=== PATIENT | female | born 1955 | race Hispanic/Latino ===

== ENCOUNTER 2018-09-30 08:59 | Outpatient (CLI) | payer MEDICARE ==
--- NOTE | 2018-09-30 11:16 | MMO ---
Bilateral MAMMO Bilat Screen [facility]DI. CLINICAL HISTORY: Patient is 62 years old and is seen for screening. The patient has no family history of breast cancer. The patient has no personal history of cancer. VIEWS: The views performed were: bilateral craniocaudal and bilateral mediolateral oblique. This study has been interpreted with the assistance of computer-aided detection. MAMMOGRAM FINDINGS: The breasts are extremely dense, which may lower the sensitivity of mammography. There are benign appearing calcifications seen in both breasts. There are no suspicious masses, suspicious calcifications, or new areas of architectural distortion. IMPRESSION: THERE IS NO MAMMOGRAPHIC EVIDENCE OF MALIGNANCY. A ROUTINE FOLLOW-UP MAMMOGRAM IN 1 YEAR IS RECOMMENDED. ACR BI-RADS Category 2 - Benign finding MAMMOGRAPHY NOTE: 1. A negative mammogram report should not delay a biopsy if a dominant of clinically suspicious mass is present. 2. Approximately 10% to 15% of breast cancers are not detected by mammography. 3. Adenosis and dense breasts may obscure an underlying neoplasm. Reported by: ALEX SEPULVEDA MD Electonically Signed: [id number]
== END 2018-09-30 09:00 | disposition home or self-care (01) ==
LOC: SCSMAMMO 08:59
PROVIDERS: ATTEND Nurse Practitioner Family
DX: Z12.31 Encounter for screening mammogram for malignant neoplasm of breast (principal)
CPT/HCPCS: 77067

== ENCOUNTER 2019-05-16 12:51 | Outpatient (CLI) | payer MEDICARE ==
--- NOTE | 2019-05-16 13:23 | ULT ---
THYROID ULTRASOUND INDICATION: Multinodular goiter and elevated TSH TECHNIQUE: Grayscale and color Doppler images were obtained of the thyroid gland. COMPARISON: None FINDINGS: Right thyroid lobe: The right thyroid lobe measures 2.0 x 4.7 x 2.3 cm. There is a hyperechoic 1.6 cm , well-circumscribed, solid nodule within the mid right thyroid gland. There is an 8 mm solid hypoechoic nodule involving the superior pole of the right thyroid lobe. Thyroid isthmus: The thyroid isthmus measures 0.54 cm. Left thyroid lobe: The left thyroid lobe measures 1.3 x 3.9 x 1.7 cm. There is a 7 mm solid hypoechoi c nodule involving the superior pole of the left lower lobe. There is an 8 mm solid, centrally hyperechoic nodule involving inferior pole of the left thyroid lobe. Smaller 7 mm hypoechoic nodule i s seen within the medial aspect of the left upper thyroid lobe. IMPRESSION: 1. Findings of multinodular goiter. 2. TIRADS 3 lesion of the mid right thyroid lobe. This lesion is greater than 1.5 cm. Recommend a fol low-up ultrasound in one year, 3 years and 5 years from this date of exam.
== END 2019-05-16 12:52 | disposition home or self-care (01) ==
LOC: BICULT 12:51
PROVIDERS: ATTEND Family Medicine
DX: R13.10 Dysphagia, unspecified (principal); R94.6 Abnormal results of thyroid function studies; E04.0 Nontoxic diffuse goiter; E07.89 Other specified disorders of thyroid; E04.2 Nontoxic multinodular goiter
CPT/HCPCS: 76536

== ENCOUNTER 2019-06-03 15:42 | Emergency (ER) | payer MEDICARE ==
[~2019-06-03 15:42] MED LIST: Iopamidol 370 76% 100 ML VIAL ONE
[2019-06-03] MEDS ORDERED: Ondansetron PF 4 MG/2 ML Vial ONE (16:06)
[2019-06-03 16:29] LABS: #Eosinphils 0.1 thou/uL (0.0-0.7); #Lymphocytes 3.3 thou/uL (1.20-3.40); #Monocytes 0.5 thou/uL (0.11-0.59); #Neutrophils 6.2 thou/uL (1.40-6.50); %Basophils 0.1 % (0.0-1.0); %Eosinophils 1.2 % (0.0-10.0); %Lymphocytes 32.1 % (21.0-51.0); %Monocytes 5.2 % (0.0-10.0); %Neutrophils 61.4 % (42.0-75.0); Hemoglobin 12.2 g/dL (12.0-16.0); Mean Corpuscular HGB CONC 36.6 g/dL (32.0-36.0); Mean Corpuscular Hemoglobin 34.7 pg (27.0-31.0); Mean Corpuscular Volume 94.6 fL (78.0-98.0); Mean Platelet Volume 7.8 fL (7.4-10.4); Platelet Count 364 thou/uL (130-400); RBC Distribution Width 11.8 % (11.5-14.5); Red Blood Cell (RBC) Count 3.52 mill/uL (4.20-5.40); White Blood Cell (WBC) Count 10.1 thou/uL (4.8-10.8)
[2019-06-03 16:33] LABS: PTT 25.7 SEC (22.9-36.1); Prothrombin Time 12.8 SEC (12.0-14.7)
[2019-06-03 16:45] LABS: ALT (SGPT) 22 U/L (8-55); AST (SGOT) 39 U/L (5-34); Albumin 4.5 g/dL (3.4-4.8); Alkaline Phosphatase 125 U/L (40-110); Anion Gap 17 mmol/L (10-20); BUN (Urea Nitrogen) 12 mg/dL (9.8-20.1); Bilirubin, Total 0.2 mg/dL (0.2-1.2); Calc. Creatinine Clearance 0 mL/min (70-130); Calcium 9.3 mg/dL (7.8-10.44); Carbon Dioxide 23 mmol/L (23-31); Chloride 104 mmol/L (98-107); Estimated GFR-MDRD 80; Globulin 4.4 g/dL (2.4-3.5); Glucose 144 mg/dL (80-115); Potassium 4.4 mmol/L (3.5-5.1); Protein, Total 8.9 g/dL (6.0-8.3); Sodium 140 mmol/L (136-145)
--- NOTE | 2019-06-03 18:35 | CT ---
CT of the abdomen and pelvis: 06/03/2019 COMPARISON: None HISTORY: Abdominal pain, GI bleeding TECHNIQUE: Axial CT imaging obtained at 5 mm intervals from the lung bases through the pubic symphysi s with IV and oral contrast. Coronal and sagittal reformatted imaging obtained. FINDINGS: The imaged lung bases are unremarkable. No free intraperitoneal air or fluid is seen. The hepatic parenchyma is diffusely hypodense, evidence of steatosis. The spleen, pancreas, and adrenal glands are unremarkable. The gallbladder is nonvisualized suggestin g prior cholecystectomy. No acute renal abnormality is noted on either side. No evidence for bowel obstruction or bowel inflammatory change. The appendix appears grossly unremark able. The vascular structures of the abdomen/pelvis appear patent. Multiple areas of soft tissue nodularity are noted within the subcutaneous fat of bilateral buttock regions suggesting the sequela of prior injections. Clinical correlation is required. There is a hypodense lesion associated with the posterior aspect of the uterus superiorly on the left measuring 2.8 cm, likely on the basis of a uterine fibroid. No abdominal or pelvic lymphadenopathy is apparent. Review of the osseous structures demonstrates degenerative change involving bilateral sacroiliac join ts. There is a are scattered areas of degenerative change involving the imaged spine, most prominent at the L5-S1 level where there is vacuum disc formation as well as bilateral facet hypertro phy with associated significant bilateral neural foraminal stenosis. IMPRESSION: Numerous incidental findings as detailed above. No acute findings are evident.
== END 2019-06-03 19:10 | disposition home or self-care (01) ==
LOC: ERS 15:42
DX: K92.1 Melena (principal); R11.2 Nausea with vomiting, unspecified; E11.9 Type 2 diabetes mellitus without complications; I10 Essential (primary) hypertension; E78.5 Hyperlipidemia, unspecified; F41.9 Anxiety disorder, unspecified; F31.9 Bipolar disorder, unspecified; F20.9 Schizophrenia, unspecified; Z79.899 Other long term (current) drug therapy; Z79.84 Long term (current) use of oral hypoglycemic drugs
CPT/HCPCS: 74177; 80053; 82274; 83630; 85025; 85610; 85730; 87045; 87046; 87324; 87427; 87449; 96361; 96374; J2405; Q9967

== ENCOUNTER 2020-12-05 14:59 | Observation (INO) | payer MEDICARE ==
[~2020-12-05 14:59] MED LIST changes: -Iopamidol 370 76% 100 ML VIAL ONE; +Iopamidol-370 76% 500 ML 1 ML ONE
[2020-12-05 15:53] LABS: #Basophils 0.1 thou/uL (0.0-0.2); #Eosinphils 0.2 thou/uL (0.0-0.7); #Lymphocytes 5.1 thou/uL (1.20-3.40); #Monocytes 0.8 thou/uL (0.11-0.59); #Neutrophils 8.1 thou/uL (1.40-6.50); %Basophils 0.9 % (0.0-1.0); %Eosinophils 1.2 % (0.0-10.0); %Lymphocytes 35.9 % (21.0-51.0); %Monocytes 5.3 % (0.0-10.0); %Neutrophils 56.8 % (42.0-75.0); Hemoglobin 13.8 g/dL (12.0-16.0); Mean Corpuscular HGB CONC 34.9 g/dL (32.0-36.0); Mean Corpuscular Hemoglobin 32.9 pg (27.0-31.0); Mean Corpuscular Volume 94.5 fL (78.0-98.0); Mean Platelet Volume 8.2 fL (7.4-10.4); Platelet Count 408 thou/uL (130-400); RBC Distribution Width 12.3 % (11.5-14.5); Red Blood Cell (RBC) Count 4.19 mill/uL (4.20-5.40); White Blood Cell (WBC) Count 14.3 thou/uL (4.8-10.8)
[2020-12-05 16:21] LABS: ALT (SGPT) 45 U/L (8-55); AST (SGOT) 46 U/L (5-34); Albumin 4.5 g/dL (3.4-4.8); Alkaline Phosphatase 101 U/L (40-110); Anion Gap 16 mmol/L (10-20); BUN (Urea Nitrogen) 19 mg/dL (9.8-20.1); Bilirubin, Total 0.6 mg/dL (0.2-1.2); Calc. Creatinine Clearance 0 mL/min (70-130); Calcium 9.9 mg/dL (7.8-10.44); Carbon Dioxide 32 mmol/L (23-31); Chloride 93 mmol/L (98-107); Globulin 4.2 g/dL (2.4-3.5); Glucose 202 mg/dL (80-115); Lipase 40 U/L (8-78); Magnesium 1.5 mg/dL (1.6-2.6); Potassium 3.3 mmol/L (3.5-5.1); Protein, Total 8.7 g/dL (5.8-8.1); Sodium 138 mmol/L (136-145)
[2020-12-05] MEDS ORDERED: Potassium Chloride 20 MEQ TAB ONE (17:03)
[2020-12-05] MEDS ORDERED: Promethazine HCl 25 MG/ML VIAL ONE (17:03)
[2020-12-05 17:43] LABS: Bilirubin Negative (Negative); Blood, Urine Negative (Negative); Clarity Clear (Clear); Glucose, Urine (Dipstick) Greater than 1000 mg/dL (Negative); Ketone, Urine Negative (Negative); Leukocyte Negative Leu/uL (Negative); Nitrite Negative (Negative); Protein, Urine (Dipstick) Negative (Neg-Trace); Specific Gravity, Urine 1.039 (1.002-1.036); Urobilinogen Normal mg/dL (Less than 2)
[2020-12-05] MEDS ORDERED: Piperacillin/Tazobactam 4.5 GM VIAL ONE (17:54)
[2020-12-05 18:56] LABS: HIV (1/2) Antibody/Antigen Non-Reactive (NonReactive); HIV 1/2 INDEX 0.07 S/CO (<1.00); Hep B Surf Ag Non-Reactive S/CO (NonReactive); Hep C IgG Ab Non-Reactive (NonReactive); Hep C Index 0.13 S/CO (0-0.79)
[2020-12-05 19:12] LABS: Lactic Acid 3.2 mmol/L (0.5-2.2)
[2020-12-05] MEDS ORDERED: Vancomycin 1 GM/200 ML BAG ONE (20:25)
[2020-12-05 22:50] LABS: SARS-CoV-2 NAA Rapid Test Not Detected (NotDetected)
[2020-12-05] MEDS ORDERED: Ondansetron ODT 4 MG TAB PO PRN (23:19)
[2020-12-05] MEDS ORDERED: Acetaminophen 325 MG TAB PO PRN (23:19)
[2020-12-05] MEDS ORDERED: Dextrose 5% in Water 1,000 ML IV PRN (23:28)
[2020-12-05] MEDS ORDERED: Dextrose 50% Abboject 50 ML SYRINGE SLOW IVP PRN (23:28)
[2020-12-05] MEDS ORDERED: HumaLOG 300 UNITS/3 ML VIAL SC PRN ×2 (23:28)
[2020-12-05] MEDS ORDERED: Magnesium 2 GM/50 ML 2 GM in Premix Bag 1 BAG IVPB SCH (23:59)
[2020-12-06] MEDS: Lactated Ringer's 1,000 ML IV SCH ×2 (01:21→08:28)
[2020-12-06 06:00] LABS: #Basophils 0.1 thou/uL (0.0-0.2); #Eosinphils 0.2 thou/uL (0.0-0.7); #Lymphocytes 4.2 thou/uL (1.20-3.40); #Monocytes 0.7 thou/uL (0.11-0.59); #Neutrophils 7.1 thou/uL (1.40-6.50); %Basophils 0.6 % (0.0-1.0); %Eosinophils 1.3 % (0.0-10.0); %Lymphocytes 34.5 % (21.0-51.0); %Monocytes 5.4 % (0.0-10.0); %Neutrophils 58.3 % (42.0-75.0); Hemoglobin 11.1 g/dL (12.0-16.0); Mean Corpuscular HGB CONC 34.3 g/dL (32.0-36.0); Mean Corpuscular Hemoglobin 32.7 pg (27.0-31.0); Mean Corpuscular Volume 95.3 fL (78.0-98.0); Platelet Count 309 thou/uL (130-400); RBC Distribution Width 12.2 % (11.5-14.5); Red Blood Cell (RBC) Count 3.39 mill/uL (4.20-5.40); White Blood Cell (WBC) Count 12.2 thou/uL (4.8-10.8)
[2020-12-06] MEDS ORDERED: Levothyroxine Sodium 125 MCG TAB PO SCH (06:00)
[2020-12-06 06:17] LABS: Lactic Acid 2.8 mmol/L (0.5-2.2)
[2020-12-06 06:22] LABS: ALT (SGPT) 27 U/L (8-55); AST (SGOT) 24 U/L (5-34); Albumin 3.5 g/dL (3.4-4.8); Alkaline Phosphatase 83 U/L (40-110); Anion Gap 12 mmol/L (10-20); BUN (Urea Nitrogen) 14 mg/dL (9.8-20.1); Bilirubin, Total 0.5 mg/dL (0.2-1.2); Calc. Creatinine Clearance 84 mL/min (70-130); Calcium 8.5 mg/dL (7.8-10.44); Carbon Dioxide 26 mmol/L (23-31); Chloride 103 mmol/L (98-107); Globulin 3.1 g/dL (2.4-3.5); Glucose 135 mg/dL (80-115); Potassium 3.9 mmol/L (3.5-5.1); Protein, Total 6.6 g/dL (5.8-8.1); Sodium 137 mmol/L (136-145)
[2020-12-06] MEDS ORDERED: Fenofibrate 48 MG TAB PO SCH (07:30)
[2020-12-06] MEDS ORDERED: Aspirin 81 mg Enteric Coated Tablet PO SCH (09:00)
[2020-12-06] MEDS ORDERED: Fish Oil 1,000 MG CAP PO SCH (09:00)
[2020-12-06 11:33] VITALS: BP 96/64; TEMP 97.2
[2020-12-06] MEDS ORDERED: Atorvastatin Calcium 20 MG TAB PO SCH (21:00)
== END 2020-12-06 15:00 | disposition home or self-care (01) ==
LOC: ERS 14:59 → T4-B 21:18
PROVIDERS: ADMIT Family Medicine; ATTEND Family Medicine
DX: B34.9 Viral infection, unspecified (principal); E86.0 Dehydration; E87.6 Hypokalemia; E83.42 Hypomagnesemia; N17.9 Acute kidney failure, unspecified; I95.9 Hypotension, unspecified; E87.2 Acidosis; I10 Essential (primary) hypertension; I25.2 Old myocardial infarction; E11.9 Type 2 diabetes mellitus without complications; E03.9 Hypothyroidism, unspecified; E06.3 Autoimmune thyroiditis; D47.3 Essential (hemorrhagic) thrombocythemia; F31.9 Bipolar disorder, unspecified; Z20.822 Contact with and (suspected) exposure to COVID-19; Z79.82 Long term (current) use of aspirin; Z79.84 Long term (current) use of oral hypoglycemic drugs; Z79.899 Other long term (current) drug therapy; Z90.49 Acquired absence of other specified parts of digestive tract; Z95.5 Presence of coronary angioplasty implant and graft
CPT/HCPCS: 71045; 74177; 80053; 81003; 82962; 83605 ×2; 83630; 83690; 83735 ×2; 84145; 85025; 86803; 87040; 87045; 87046; 87077; 87086; 87186; 87324; 87328; 87329; 87340; 87389; 87427 ×2; 87449 ×2; 93005; 94760; 96365; 96366; 96367; 99285; U0002; 36415; 36416; 84443; G0378; J1815; J2543; J2550; J3370; J3475; J7120; Q9967